=== PATIENT | female | born 1980 | race Caucasian/White ===

== ENCOUNTER 2024-01-07 17:49 | Emergency (ER) | payer MEDICARE, SELFPAY ==
[2024-01-07 17:51] VITALS: BP 104/73
[2024-01-07 18:50] LABS: % Eosinophils 3.2 % (0-6); % Immature Granulocytes 0.2 % (0-0.5); % Lymphocytes 43.1 % (20.5-51.1); % Monocytes 6.4 % (1.7-9.3); % Neutrophils 46.1 % (42.2-75.2); Absolute Basophils 0.1 10^3/uL (0-0.2); Absolute Eosinophils 0.3 10^3/uL (0-0.7); Absolute Lymphocytes 3.5 10^3/uL (1.2-3.4); Absolute Monocytes 0.5 10^3/uL (0.1-0.6); Absolute Neutrophils 3.7 10^3/uL (1.4-6.5); Hematocrit 37.1 % (37.0-47.0); Hemoglobin 12.4 g/dL (12.0-16.0); Mean Corp Hgb Conc. 33.4 g/dL (33.0-37.0); Mean Corpuscular Hgb 29.5 pg (27.0-31.0); Mean Corpuscular Volume 88.1 fL (81.0-99.0); Mean Platelet Volume 11.5 fL (7.4-10.4); Nucleated Red Blood Cells % 0 %; Platelet Count 189 10^3/uL (130-400); Red Blood Cell Count 4.21 10^6/uL (4.20-5.40); Red Cell Dist. Width 13.4 % (11.5-14.5); Urine Albumin Negative (Neg - Trace); Urine Bilirubin Negative (Negative); Urine Character Clear (Clear); Urine Color Yellow; Urine Glucose Negative (Negative); Urine Ketone Negative (Negative); Urine Leukocyte Negative (Negative); Urine Nitrite Negative (Negative); Urine Occult Blood Negative (Negative); Urine Specific Gravity 1.025 (<1.030); Urine Urobilinogen Negative (Neg - 1+); White Blood Cell Count 8.1 10^3/uL (4.8-10.8)
--- NOTE | 2024-01-07 19:06 | ED.GENMED ---
History of Present Illness
General
Chief Complaint: Flank Pain
Source: patient
Exam Limitations: none
Time Seen by Provider: 01/07/24 18:13
Nursing documentation reviewed up to this point in time: agreed with
History of Present Illness
History of Present Illness:
Patient is a 43-year-old female presents to the ED with complaints of left flank pain for the past several days. Patient has also had increased urination. She denies any burning fever or chills.
She has a history of kidney infection the past but has not had a history of kidney stones. She denies any nausea vomiting. She does report however that she is in physical every for her knee she does not believe she injured herself but does feel
worse when she twists and turns.
In addition patient complains of left knee pain. She is presently in physical therapy for her left knee and has been going to therapy more last week and thinks she may have overdone it.
Phy Exam
General Physical Exam
General Presentation: no apparent distress
General age: appears stated age
General Skin: warm and dry
General Habitus: normal
General Mental: alert
General Hydration: appears well hydrated
Gastrointestinal Exam
Gastrointestinal Exam: non tender and soft
Neurological Exam
Neurological Exam: alert and oriented x3
Musculoskeletal Exam
Musculoskeletal Exam: other (lle with strong pulses no obvious swelling able to flex/extend no erythema no calf tenderness/swelling )
Skin Exam
Skin Exam: normal color and warm/dry
Psychiatric Exam
Psychiatric Exam: normal mood/affect
Course
Orders/Labs/Results
Orders:
Orders
01/07/24 18:43
Complete Blood Count/With Diff Urgent
Comprehensive Metabolic Panel Urgent
HCG, Serum Qualitative Screen Urgent
Comment: ADD ON
Urinalysis Reflex To Culture Urgent
Date Specimen was Collected: 01/07/24
Time Specimen was Collected: 18:36
01/07/24 19:30
Add On- LAB Urgent
Tests Added?: serum hcg
Knee, Left 4 or More Views [CR Knee - Left 4 Or More View*] Urgent
Comment:
Reason For Exam: pain
01/07/24 19:31
CT Abd/pel Without Iv Or Oral Urgent
Comment:
Reason For Exam: left flank pain
Abnormal Lab Results
01/07/24
18:43
MPV 11.5 H fL
(7.4-10.4)
Absolute Lymphs (auto) 3.5 H 10^3/uL
(1.2-3.4)
Alkaline Phosphatase 35 L U/L
(38-126)
01/07/24 18:43
01/07/24 18:43
Vital Signs
Initial and Last Documented VS:
Initial Vital Signs
Temp Pulse Resp BP Pulse Ox
98.4 F 76 18 104/73 99
01/07/24 17:51 01/07/24 17:51 01/07/24 17:51 01/07/24 17:51 01/07/24 17:51
Last Documented Vital Signs
Temp Pulse Resp BP Pulse Ox
98.4 F 76 18 104/73 99
01/07/24 17:51 01/07/24 17:51 01/07/24 17:51 01/07/24 17:51 01/07/24 17:51
MDM/Problems Addressed
Differential Diagnosis Includes:
Not limited to knee sprain strain, UTI, pyelonephritis, renal stone
MDM/Problems Addressed:
Patient presented to the ER complaining of left low back/flank pain frequency urination and was concerned about possible infection versus kidney stone. Patient's CAT scan is negative for kidney stone there is no evidence infection she denies any
fever or chills her labs unremarkable. She has a physical therapy for her knee and does feel the pain is worse with twisting possibly muscular however no concerning findings on patient's workup, here in the ER
In addition patient complains of left knee pain she is presently in physical therapy for this as she denies any injury during therapy x-ray does show small effusion discussed resting this is much as possible. She wishes to go to her sisters
orthopedic doctor she will reach out.
*Critical Care Note
Total Time (30-74mins, 75-104mins- exclusive of procedures): Not Applicable
ED Attending Note
-
Portions of this chart may have been created with voice recognition software.� Occasional wrong word or��sound alike� substitutions may have occurred due to the inherent limitations of voice recognition software.
Discharge Plan
Departure
Referrals:
Danilo Shin, [Family Provider] -
Interventions
Interventions:
*Risk Screen - Suicide Last Done: 01/07/24 17:51
*General Assessment Last Done: 01/07/24 17:51
*Neglect/Abuse Screening Last Done: 01/07/24 17:51
SX-Ikbgzq-Wowpraduwe Assessment Last Done: 01/07/24 18:46
ED-Female Genitourinary Assessment Last Done: 01/07/24 18:46
ED-Musculoskeletal Assessment Last Done: 01/07/24 18:46
Discharge Date and Time
Print Language: MALAY
[2024-01-07 19:12] LABS: ALT (SGPT) 15 U/L (0-35); AST (SGOT) 20 U/L (14-36); Albumin 4.3 g/dl (3.5-5.0); Alkaline Phosphatase 35 U/L (38-126); Blood Urea Nitrogen 17 mg/dl (7-17); Calcium 9.4 mg/dl (8.4-10.2); Carbon Dioxide 30 mmol/L (22-30); Chloride 101 mmol/L (98-107); Glucose 86 mg/dl (70-99); Potassium 4.3 mmol/L (3.5-5.1); Sodium 140 mmol/L (135-145); Total Bilirubin 0.2 mg/dl (0.2-1.3); Total Protein 6.9 g/dl (6.3-8.2); eGFR > 60.00
[2024-01-07 20:13] LABS: HCG, Serum Qualitative Screen Negative
[2024-01-07 22:13] VITALS: BP 99/58
== END 2024-01-07 22:15 | disposition home or self-care (01) ==
LOC: EMR 17:49
PROVIDERS: Nurse Practitioner; EMERGENCY PHYSICIAN Emergency Medicine; FAMILY PHYSICIAN Family Medicine
DX: M25.562 Pain in left knee (principal); M54.9 Dorsalgia, unspecified; Z87.440 Personal history of urinary (tract) infections
CPT/HCPCS: 99284; 73564; 74176; 80053; 81003; 84703; 85025